=== PATIENT | female | born 1970 | race Caucasian/White ===

== ENCOUNTER 2023-12-13 07:53 | Emergency (ER) | payer MEDICAID, OTHER ==
[~2023-12-13] VITALS: Ht 157.5 cm; Wt 59.1 kg
[~2023-12-13 07:53] MED LIST: ASPI-825 PO; INSLAN SQ; LISI-893 PO
[2023-12-13 08:03] VITALS: TEMP 97.6
[2023-12-13] MEDS: SODIUM CHLORIDE 0.9% 1,000 ML IV ONE ×2 (08:43→09:26)
[2023-12-13] MEDS: ONDANSETRON HCL 4 MG/2 ML VIAL IVP ONE (08:45)
[2023-12-13] MEDS: KETOROLAC TROMETHAMINE 30 MG/ML VIAL IVP ONE (08:45)
[2023-12-13 08:49] LABS: BASOPHILS % (AUTO) 0.3 % (0.0-2.0); EOSINOPHILS % (AUTO) 0.1 % (1.0-6.0); HEMATOCRIT 38.9 % (36-46); HEMOGLOBIN 13.4 g/dL (12.0-16.0); LYMPHOCYTES # (AUTO) 0.6 K/uL (1.0-4.8); LYMPHOCYTES % (AUTO) 5.4 % (22.0-44.0); MEAN CORPUSCULAR HEMOGLOBIN 31.3 pg (26.0-34.0); MEAN CORPUSCULAR HGB CONC 34.3 G/dL (31.0-37.0); MEAN CORPUSCULAR VOLUME 91 fL (80-100); MONOCYTES # (AUTO) 0.4 K/uL (0.1-1.0); MONOCYTES % (AUTO) 3.9 % (2.0-9.0); NEUTROPHILS # (AUTO) 9.9 K/uL (1.8-7.7); PLATELET COUNT (AUTO) 248 K/uL (150-450); RED BLOOD CELL COUNT(AUTO) 4.27 MIL/uL (4.00-5.20); RED CELL DISTRIBUTION WIDTH 12.4 % (11.5-14.5); WHITE BLOOD COUNT (AUTO) 10.9 K/uL (4.5-11.0)
[2023-12-13 08:50] LABS: NEUTROPHILS % (AUTO) 90.3 % (40.0-70.0)
[2023-12-13 09:00] LABS: ANION GAP 12 mmol/L (8-16); CALCIUM, TOTAL 9.5 mg/dL (8.8-10.5); CARBON DIOXIDE 29 mmol/L (22-29); CHLORIDE 107 mmol/L (98-107); CREATININE 0.96 mg/dL (0.60-1.30); GLOMERULAR FILTR. RATE CALC > 60 mL/min (>60); GLUCOSE,RANDOM 119 mg/dL (70-110); POTASSIUM 3.6 mmol/L (3.5-5.1); SODIUM SERUM 148 mmol/L (136-145); UREA NITROGEN, BLOOD 16 mg/dL (7-18)
[2023-12-13 09:06] LABS: ALANINE AMINOTRANSFERASE 26 U/L (12-78); ALBUMIN 3.8 g/dL (3.4-5.0); ALKALINE PHOSPHATASE 153 U/L (46-116); ASPARTATE AMINOTRANSFERASE 29 U/L (15-37); BILIRUBIN,TOTAL 0.2 mg/dL (0.1-1.0); LIPASE 17 U/L (16-77); TOTAL PROTEIN, SERUM 7.8 g/dL (6.4-8.2)
[2023-12-13 09:16] LABS: RBC MORPHOLOGY COMMENT NORMAL RBC MORPH
[2023-12-13 09:20] LABS: TROPONIN I-HIGH SENSITIVITY Less Than 4 ng/L (<51)
[2023-12-13 09:22] LABS: LACTIC ACID 4.8 mmol/L (0.4-2.0)
[2023-12-13 11:41] VITALS: BP 130/74; PULSE 87; RESP 14
[2023-12-13 11:51] LABS: GLUCOMETER DEV NAME(LOC) ER.6; GLUCOSE,POINT OF CARE 70 MG/DL (70-110)
[2023-12-13] MEDS ORDERED: METH-659 PO (12:40)
[2023-12-13] MEDS ORDERED: ACET-66 PO (12:40)
== END 2023-12-13 12:43 | disposition home or self-care (01) ==
LOC: EMS 08:03
DX: S39.012A Strain of muscle, fascia and tendon of lower back, initial encounter (principal); E11.9 Type 2 diabetes mellitus without complications; I10 Essential (primary) hypertension; Z98.890 Other specified postprocedural states; Z88.0 Allergy status to penicillin; X58.XXXA Exposure to other specified factors, initial encounter; Y93.89 Activity, other specified; Y92.89 Other specified places as the place of occurrence of the external cause; Y99.8 Other external cause status
CPT/HCPCS: 99284; 96374; 96361; 96375; 80053; 82962; 83605; 83690; 84484; 85025; 36415; 93005; J1885; J2405; J7030